=== PATIENT | female | born 2000 | race Two or more races ===

== ENCOUNTER → 2018-09-06 | Outpatient (CLI) | payer OTHER ==
--- NOTE | 2018-09-06 13:49 | KCIC ---
3 views right wrist dated 09/06/2018. No comparison available. CLINICAL INDICATION: Right wrist pain. FINDINGS: 3 views right wrist show normal bony alignment. No displaced fracture. No acute osseous or articular abnormality. No periostitis or bone destruction. IMPRESSION: No acute radiographic abnormality. Electronically signed by: Ramirez Iglesias MD (09/06/2018 1:46 PM) [id number]
== END | disposition home or self-care (01) ==
LOC: KCIC 12:57
PROVIDERS: ATTEND Nurse Practitioner Family
DX: M25.531 Pain in right wrist (principal)
CPT/HCPCS: 73110